=== PATIENT | female | born 1975 | race Two or more races ===

== ENCOUNTER 2018-04-26 18:34 | Emergency (ER) | payer MEDICAID ==
[~2018-04-26] VITALS: Ht 152.4 cm; Wt 68.0 kg
[~2018-04-26 18:34] MED LIST: CIPROFLOXACIN500 M2 ORAL; PHENAZOPYRIDIN200 MG ORAL
[2018-04-26] MEDS ORDERED: LORazepam Inj 2mg/ml 1ml IV ONE (19:15)
[2018-04-26] MEDS ORDERED: Ketorolac 30mg Inj IV ONE (19:15)
[2018-04-26 19:41] LABS: INR 0.9 (0.9-1.1)
[2018-04-26 19:42] LABS: BASOPHILS % (AUTO) 0.3 % (0.0-2.0); HEMATOCRIT 43.2 % (37.0-47.0); HEMOGLOBIN 14.5 G/DL (12.0-16.0); LYMPHOCYTES % (AUTO) 36.9 % (20.0-45.0); MEAN CORPUSCULAR VOLUME 86 FL (80-99); MONOCYTES % (AUTO) 5.3 % (1.0-10.0); NEUTROPHILS % (AUTO) 56.5 % (45.0-75.0); PLATELET COUNT 279 K/UL (150-450); RED BLOOD COUNT 5.03 M/UL (4.20-5.40); WHITE BLOOD COUNT 8.4 K/UL (4.8-10.8)
[2018-04-26 19:45] LABS: ANION GAP 8 mmol/L (5-15); BLOOD UREA NITROGEN 12 mg/dL (7-18); CALCIUM 9.5 MG/DL (8.5-10.1); CARBON DIOXIDE 27 MMOL/L (21-32); CHLORIDE 103 MMOL/L (98-107); CREATININE 0.7 MG/DL (0.55-1.30); SODIUM 138 MMOL/L (136-145)
[2018-04-26 20:03] LABS: ALANINE AMINOTRANSFERASE 31 U/L (12-78); ALBUMIN 4.1 G/DL (3.4-5.0); ALBUMIN/GLOBULIN RATIO 1.1 (1.0-2.7); ALKALINE PHOSPHATASE 81 U/L (46-116); ASPARTATE AMINO TRANSFERASE 25 U/L (15-37); BILIRUBIN,TOTAL 0.5 MG/DL (0.2-1.0); CREATINE KINASE 114 U/L (26-308)
[2018-04-26 21:30] VITALS: BP 119/74
[2018-04-26 22:10] LABS: APPEARANCE,URINE CLEAR; BILIRUBIN, URINE NEGATIVE (NEGATIVE); COLOR,URINE PALE YELLOW; GLUCOSE, URINE (UA) NEGATIVE (NEGATIVE); KETONES,URINE NEGATIVE (NEGATIVE); LEUKOCYTE ESTERASE ,URINE 1+ (NEGATIVE); NITRITE,URINE NEGATIVE (NEGATIVE); PH,URINE 7 (4.5-8.0); PROTEIN,URINE NEGATIVE (NEGATIVE); UROBILINOGEN,URINE NORMAL MG/DL (0.0-1.0)
--- NOTE | 2018-04-26 22:22 | Emergency Room Report ---
History of Present Illness General Chief Complaint: Chest Pain Source: Patient Present Illness HPI Patient presents with increased neck and neck pain. In addition to that she has dyspnea. Today she started having involuntary movements of her lower lip. This has been intermittent. The neck pain is rated 7/10, aching, radiating somewhat to her head. To triage nurse she reported different complaint of L sided chest pain radiating to L shoulder since yesterday. Several months ago she was treated with antianxiety medication. She's run out of that at this time. She thinks it was Xanax. No daily alcohol use. No x-ray studies of been done of her neck. She has chronic neck pain that's intermittent. Occasionally severe. She has had really increased stress recently with the of a family member here in [place] and one other that was murdered in [place]. No extremity weakness or numbness. No headaches. No change in vision. Last menses January. Allegedly prediabetic. Allergies: Coded Allergies: No Known Allergies (Unverified , 04/26/18) Patient History Past Medical History: see triage record Social History: Reports: alcohol use; Denies: smoking Social History Narrative with family Last Menstrual Period: January 2018 Reviewed Nursing Documentation: PMH: Agreed; PSxH: Agreed Nursing Documentation-PMH Past Medical History: No History, Except For Review of Systems All Other Systems: negative except mentioned in HPI Physical Exam Vital Signs Date Time Temp Pulse Resp B/P (MAP) Pulse Ox O2 Delivery O2 Flow Rate FiO2 04/26/18 18:39 98.0 67 16 122/74 99 Room Air 98.1 Sp02 EP Interpretation: reviewed, normal General Appearance: well appearing, no apparent distress, GCS 15 Head: normocephalic Eyes: bilateral eye normal inspection, bilateral eye PERRL, bilateral eye EOMI ENT: moist mucus membranes Neck: full range of motion, supple, tender - bilateral muscles Respiratory: lungs clear, normal breath sounds Cardiovascular #1: regular rate, rhythm Cardiovascular #2: 2+ radial (R) Gastrointestinal: normal inspection, normal bowel sounds, non tender, no mass, non-distended Musculoskeletal: back normal, gait/station normal, normal range of motion Neurologic: alert, oriented x3, 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 DDx; DJD, strain, anxiety, electrolyte abnormalities, pericarditis, pleurisy, PE amongst others. Based on history and VS, PE unlikely. No evidence of stroke at this time. Evaluation with EKG, CXR, C spine films, labs. Treatment with toradol and ativan. EKG without injury. CXR clear. Labs with normal CBC and CMP. UA clear and preg neg. Patient pain improved but now complaining of some nausea. No further involuntary motions of her lower lip. I discussed possible etiologies and treatment plan. Patient stable for outpatient observation and treatment. Laboratory Tests Test 04/26/18 19:10 04/26/18 21:43 White Blood Count 8.4 K/UL (4.8-10.8) Red Blood Count 5.03 M/UL (4.20-5.40) Hemoglobin 14.5 G/DL (12.0-16.0) Hematocrit 43.2 % (37.0-47.0) Mean Corpuscular Volume 86 FL (80-99) Mean Corpuscular Hemoglobin 28.8 PG (27.0-31.0) Mean Corpuscular Hemoglobin Concent 33.5 G/DL (32.0-36.0) Red Cell Distribution Width 11.0 % (11.6-14.8) L Platelet Count 279 K/UL (150-450) Mean Platelet Volume 5.0 FL (6.5-10.1) L Neutrophils (%) (Auto) 56.5 % (45.0-75.0) Lymphocytes (%) (Auto) 36.9 % (20.0-45.0) Monocytes (%) (Auto) 5.3 % (1.0-10.0) Eosinophils (%) (Auto) 1.0 % (0.0-3.0) Basophils (%) (Auto) 0.3 % (0.0-2.0) Prothrombin Time 9.9 SEC (9.30-11.50) Prothrombin Time INR 0.9 (0.9-1.1) PTT 30 SEC (23-33) Sodium Level 138 MMOL/L (136-145) Potassium Level 4.0 MMOL/L (3.5-5.1) Chloride Level 103 MMOL/L (98-107) Carbon Dioxide Level 27 MMOL/L (21-32) Anion Gap 8 mmol/L (5-15) Blood Urea Nitrogen 12 mg/dL (7-18) Creatinine 0.7 MG/DL (0.55-1.30) Estimate Glomerular Filtration Rate > 60 mL/min (>60) Glucose Level 87 MG/DL (74-106) Calcium Level 9.5 MG/DL (8.5-10.1) Total Bilirubin 0.5 MG/DL (0.2-1.0) Aspartate Amino Transferase (AST) 25 U/L (15-37) Alanine Aminotransferase (ALT) 31 U/L (12-78) Alkaline Phosphatase 81 U/L (46-116) Total Creatine Kinase 114 U/L (26-308) Troponin I 0.000 ng/mL (0.000-0.056) Pro-B-Type Natriuretic Peptide 36 pg/mL (0-125) Total Protein 8.0 G/DL (6.4-8.2) Albumin 4.1 G/DL (3.4-5.0) Globulin 3.9 g/dL Albumin/Globulin Ratio 1.1 (1.0-2.7) Urine Color Pale yellow Urine Appearance Clear Urine pH 7 (4.5-8.0) Urine Specific [place] 1.015 (1.005-1.035) Urine Protein Negative (NEGATIVE) Urine Glucose (UA) Negative (NEGATIVE) Urine Ketones Negative (NEGATIVE) Urine Blood Negative (NEGATIVE) Urine Nitrite Negative (NEGATIVE) Urine Bilirubin Negative (NEGATIVE) Urine Urobilinogen Normal MG/DL (0.0-1.0) Urine Leukocyte Esterase 1+ (NEGATIVE) H Urine RBC 0-2 /HPF (0 - 2) Urine WBC 2-4 /HPF (0 - 2) Urine Squamous Epithelial Cells Moderate /LPF (NONE/OCC) H Urine Bacteria Few /HPF (NONE) Urine HCG, Qualitative Negative (NEGATIVE) EKG Diagnostic Results Rate: bradycardiac ST Segments: no acute changes Rhythm Strip Diag. Results EP Interpretation: yes Rhythm: no PVC's, no ectopy, other - karlie Chest X-Ray Diagnostic Results Chest X-Ray Diagnostic Results : Chest X-Ray Ordered: Yes # of Views/Limited/Complete: 1 View Indication: Chest Pain Interpretation: no consolidation, no effusion, no pneumothorax Impression: No acute disease Electronically Signed by: Electronically signed by Chip Fernandez MD Other X-Ray Diagnostic Results Other X-Ray Diagnostic Results : X-Ray ordered: c spine # of Views/Limited Vs Complete: 4 View Indication: Pain Interpretation: no dislocation, no soft tissue swelling, no fractures, other - djd Impression: Other Electronically Signed by: Electronically signed by Chip Fernandez MD Last Vital Signs Date Time Temp Pulse Resp B/P (MAP) Pulse Ox O2 Delivery O2 Flow Rate FiO2 04/26/18 22:50 98.2 62 16 117/69 99 Room Air 98.2 Status: improved Disposition: HOME, SELF-CARE Condition: Improved Scripts Tramadol Hcl* (ULTRAM*) 50 Mg Tablet 50 MG ORAL Q6H PRN for For Pain, #6 TAB 0 Refills Prov: Chip Fernandez M.D. 04/26/18 Ondansetron Odt* (ZOFRAN ODT*) 4 Mg Tab.rapdis 4 MG BC EVERY 8 HOURS PRN for Nausea & Vomiting, #6 TAB 0 Refills Prov: Chip Fernandez M.D. 04/26/18 Ibuprofen* (MOTRIN*) 600 Mg Tablet 600 MG ORAL Q6H PRN for For Pain, #20 TAB Prov: Chip Fernandez M.D. 04/26/18 Referrals: NOT CHOSEN JAKE/,REFERRING (PCP) Chip Fernandez M.D. Apr 26, 2018 22:22
[2018-04-26] MEDS ORDERED: TRAMADOL HCL50 MG ORAL (22:37)
[2018-04-26] MEDS ORDERED: ONDANSETRON ODT4 MG BC (22:37)
[2018-04-26] MEDS ORDERED: IBUPROFEN600 MG ORAL (22:37)
[2018-04-26 22:40] VITALS: BP 117/69
[2018-04-26 22:50] VITALS: BP 117/69
--- NOTE | 2018-04-27 10:34 | Diagnostic Imaging Report ---
Indication: Chest pain Technique: One view of the chest Comparison: none Findings: Lungs and pleural spaces are clear. Heart size is normal Impression: No acute process
--- NOTE | 2018-04-27 10:35 | Diagnostic Imaging Report ---
Indication: Neck pain Technique: 3 views of the cervical spine Comparison: none Findings: With alignment is normal. No prevertebral soft tissue swelling. Vertebral body heights are preserved. The disc spaces are preserved. No acute fractures. No dislocations. Impression: Negative
--- NOTE | 2018-04-27 15:49 | Cardiology Report ---
APPROVED REPORT EKG Measurement Heart [id number] Sinus bradycardia Otherwise normal ECG
== END 2018-04-26 22:57 | disposition home or self-care (01) ==
LOC: EMR 19:16
DX: M54.2 Cervicalgia (principal); Z73.3 Stress, not elsewhere classified
CPT/HCPCS: 36415; 71045; 72040; 80053; 81003; 81025; 82550; 83880; 84484; 85025; 85610; 85730; 93005; 96361; 96374; 96375; 99284; J1885

== ENCOUNTER 2019-06-06 15:27 | Emergency (ER) | payer MEDICAID ==
[~2019-06-06] VITALS: Ht 162.6 cm; Wt 90.7 kg
[~2019-06-06 15:27] MED LIST changes: +IBUPROFEN600 MG ORAL; +ONDANSETRON ODT4 MG BC; +TRAMADOL HCL50 MG ORAL
--- NOTE | 2019-06-06 15:50 | Emergency Room Report ---
History of Present Illness General Chief Complaint: Lower Extremity Injury Source: Patient Present Illness HPI 44-year-old female with history of diabetes currently taking metformin here complaining of left gluteal pain radiating all the way to posterior thigh and lower extremity. Patient reports the pain is worse when sitting and standing. Rating pain 10 out of 10. Denies any fall or injury. Denies heavy lifting. Denies any urinary or bowel incontinence. Denies tingling numbness. Has not taken medication for symptom relief. Denies chest pain, shortness of breath, palpitation, and other associated symptoms. Allergies: Coded Allergies: No Known Allergies (Unverified , 04/26/18) Patient History Past Medical History: see triage record Past Surgical History: unable to obtain Pertinent Family History: none Last Menstrual Period: 05/25/19 Now: No : 3 Para: 3 Immunizations: UTD Reviewed Nursing Documentation: PMH: Agreed; PSxH: Agreed Nursing Documentation-PMH Past Medical History: No Stated History Review of Systems All Other Systems: negative except mentioned in HPI Physical Exam Vital Signs Date Time Temp Pulse Resp B/P (MAP) Pulse Ox O2 Delivery O2 Flow Rate FiO2 06/06/19 15:29 98.1 64 18 125/77 (93) 97 Room Air Sp02 EP Interpretation: reviewed, normal General Appearance: no apparent distress, alert, GCS 15, non-toxic Head: normocephalic, atraumatic Eyes: bilateral eye normal inspection, bilateral eye PERRL ENT: hearing grossly normal, normal pharynx, no angioedema, normal voice Neck: full range of motion, supple/symm/no masses Respiratory: chest non-tender, lungs clear, normal breath sounds, no rhonchi, no wheezing, speaking full sentences Cardiovascular #1: regular rate, rhythm, no edema, no murmur Cardiovascular #2: 2+ dorsalis pedis (R), 2+ dorsalis pedis (L) Gastrointestinal: normal bowel sounds, non tender, soft, non-distended, no guarding, no rebound Rectal: deferred Genitourinary: no CVA tenderness Musculoskeletal: back normal, gait/station normal, normal range of motion, non- tender, no calf tenderness, other - Positive left straight leg test Neurologic: alert, oriented x3, responsive, motor strength/tone normal, sensory intact, speech normal Psychiatric: judgement/insight normal, memory normal, mood/affect normal, no suicidal/homicidal ideation Skin: no rash Lymphatic: normal inspection Medical Decision Making PA Attestation All my diagnosis and treatment plans were reviewed ad discussed with my supervising physician Dr. Kraft Diagnostic Impression: Primary Impression: Sciatica of left side ER Course 44-year-old female with history of diabetes currently taking metformin here complaining of left gluteal pain radiating all the way to posterior thigh and lower extremity. Patient reports the pain is worse when sitting and standing. Rating pain 10 out of 10. Denies any fall or injury. Denies heavy lifting. Denies any urinary or bowel incontinence. Denies tingling numbness. Has not taken medication for symptom relief. Denies chest pain, shortness of breath, palpitation, and other associated symptoms. Ddx considered but are not limited to: Lumbar spine sprain, strain, fracture, contusion, neuropathy, sciatic pain Vital signs: are WNL, pt. is afebrile H&PE are most consistent with: Sciatica of left side ORDERS: No x-ray necessary as there was no fall or injury. Ibuprofen, Robaxin, lidocaine patch ER intervention: Toradol DISCHARGE: At this time pt. is stable for d/c to home. Will provide printed patient care instructions, and any necessary prescriptions. Care plan and follow up instructions have been discussed with the patient prior to discharge. Patient to follow-up with her primary care provider, if worsening symptoms return to the emergency room. Physical therapy and MRI may be needed. Last Vital Signs Date Time Temp Pulse Resp B/P (MAP) Pulse Ox O2 Delivery O2 Flow Rate FiO2 06/06/19 15:29 98.1 64 18 125/77 (93) 97 Room Air Disposition: HOME, SELF-CARE Condition: Stable Scripts Lidocaine Patch* (Lidoderm Patch*) 1 Each Adh..patch 1 PATCH TOPIC DAILY, #7 PATCH 0 Refills Patch(es) may remain in place for up to 12 hours in any 24-hour period. Prov: Jose M Goldberg 06/06/19 Methocarbamol* (ROBAXIN-500*) 500 Mg Tablet 500 MG ORAL TID PRN for For Pain, #15 TAB 0 Refills Prov: Jose M Goldberg 06/06/19 Ibuprofen (Ibu) 800 Mg Tablet 800 MG PO TID, #21 TAB Prov: Jose M Goldberg 06/06/19 Patient Instructions: Sciatica, [id number] Additional Instructions: Take medication as directed, avoid strenuous physical activity, follow-up with your primary care provider for further evaluation, and physical therapy. At this time no x-rays necessary at there was no fall or injury or any involvement of bones. If pain continues to be chronic MRI may be beneficial. Jose M Goldberg Jun 06, 2019 15:50
[2019-06-06] MEDS ORDERED: IBU800 MG PO (15:51)
[2019-06-06] MEDS ORDERED: LIDODERM700 M1 TOPIC (15:51)
[2019-06-06] MEDS ORDERED: ROBAXIN-500MG ORAL (15:51)
--- NOTE | 2019-06-06 16:00 | NUR ---
ER DISCHARGE NOTE: Patient is cleared to be discharged per ERMD, pt is aox4, on room air, with stable vital signs. pt was given dc and prescription instructions, pt was able to verbalize understanding, pt is able to ambulate with steady gait. pt took all belongings.
[2019-06-06 16:39] VITALS: BP 125/77
== END 2019-06-06 16:00 | disposition home or self-care (01) ==
LOC: EMR 15:50
DX: M54.32 Sciatica, left side (principal)
CPT/HCPCS: 99282